=== PATIENT | male | born 1975 | race Caucasian/White ===

== ENCOUNTER → 2017-05-07 | Outpatient (CLI) | payer OTHER ==
--- NOTE | 2017-05-07 23:28 | MR ---
EXAMINATION TYPE: MR ankle LT wo con DATE OF EXAM: 05/07/2017 COMPARISON: NONE HISTORY: Left foot/ankle pain Standard multiplanar, multisequence MRI departmental protocol Multiplanar, multisequence images of the left ankle were acquired. FINDINGS: Achilles tendon is intact. Plantar fascia appears intact. The medial and lateral flexor ten dons of the ankle appear intact. There is no evidence of a fracture. Ankle mortise is anatomic. I see no focal bone destruction. The collateral ligaments appear intact. There are prominent veins around the hindfoot. There is subcutaneous edema noted in the soft tissues posterior to the distal fibula. T here is minimal subcutaneous edema over the medial malleolus. IMPRESSION: Mild medial and lateral subcutaneous edema as above. No evidence of ligament or tendon tear. Varicose veins.
== END | disposition home or self-care (01) ==
LOC: RADMRIMAIN 20:03
PROVIDERS: ATTEND Orthopaedic Surgery
DX: M79.89 Other specified soft tissue disorders (principal)